=== PATIENT | male | born 1985 | race Asian ===

== ENCOUNTER 2017-06-27 14:20 | Emergency (ER) | payer OTHER ==
[~2017-06-27] VITALS: Ht 172.7 cm; Wt 61.3 kg
[2017-06-27 14:33] VITALS: BP 124/79
[2017-06-27] MEDS ORDERED: LIDOCAINE HCL 1% 10 ML VIAL INJ ONE (17:15)
[2017-06-27] MEDS ORDERED: PERTUSS(ACELL),DIPH,TET VAC/PF 0.5 ML VIAL IM ONE (17:15)
[2017-06-27] MEDS ORDERED: IBUPROFEN 800 MG TABLET PO ONE (17:15)
[2017-06-27] MEDS ORDERED: POVIDONE-IODINE 10% 15 ML SOLUTION UD TP ONE (17:15)
[2017-06-27] MEDS ORDERED: BACITRACIN 0.9 GM PACKET OINTMENT TP ONE (17:30)
== END 2017-06-27 17:49 | disposition home or self-care (01) ==
LOC: EMS 14:23
DX: S81.811A Laceration without foreign body, right lower leg, initial encounter (principal); F12.10 Cannabis abuse, uncomplicated; W25.XXXA Contact with sharp glass, initial encounter; Y93.89 Activity, other specified; Y92.89 Other specified places as the place of occurrence of the external cause; Y99.9 Unspecified external cause status
CPT/HCPCS: 12002; 90471; 90715; 99283; J3490